=== PATIENT | male | born 1995 | race Caucasian/White ===

== ENCOUNTER 2016-10-13 15:05 | Emergency (ER) | payer OTHER ==
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
[2016-10-13 16:29] VITALS: BP 108/64; PULSE 57; RESP 20; TEMP 98.4; O2SAT 96
== END 2016-10-13 17:09 | disposition home or self-care (01) ==
DX: S09.90XA Unspecified injury of head, initial encounter (principal); T14.8 Other injury of unspecified body region; V13.9XXA Unspecified pedal cyclist injured in collision with car, pick-up truck or van in traffic accident, initial encounter; Y92.410 Unspecified street and highway as the place of occurrence of the external cause; Y99.8 Other external cause status; Y93.55 Activity, bike riding; E07.9 Disorder of thyroid, unspecified

== ENCOUNTER 2017-07-15 14:35 | Emergency (ER) | payer OTHER ==
[2017-07-15 14:55] VITALS: BP 127/90
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
== END 2017-07-15 15:45 | disposition home or self-care (01) ==
DX: S09.90XA Unspecified injury of head, initial encounter (principal); V18.0XXA Pedal cycle driver injured in noncollision transport accident in nontraffic accident, initial encounter; Y92.410 Unspecified street and highway as the place of occurrence of the external cause; Y99.8 Other external cause status; Y93.55 Activity, bike riding